=== PATIENT | male | born 1960 | race Caucasian/White ===

== ENCOUNTER → 2019-07-27 | Outpatient (CLI) | payer OTHER | LOC: COL.RAD 13:53 | DX: R91.8 Other nonspecific abnormal finding of lung field (principal) | CPT/HCPCS: Q9967 ==

== ENCOUNTER → 2019-08-21 | Outpatient (CLI) | payer OTHER ==
[~2019-08-21] VITALS: Ht 188 cm; Wt 66.2 kg
[2019-08-21] VITALS (8 sets, daily range): BP systolic 135–169; BP diastolic 82–114; PULSE 59–79
--- NOTE | 2019-08-21 07:57 | NUR ---
PT AMBULATROY TO CT. PLACED ON MONITOR EQUIPMENT AND IMAGES TAKEN.
--- NOTE | 2019-08-21 08:17 | NUR ---
PT WAS GIVEN 50 MCG FENTANYL FOR PAIN AT 0807 SAMPLES WERE TAKEN
--- NOTE | 2019-08-21 09:00 | NUR ---
PT WAS TAKEN BY WHEELCHAIR TO POV. MOM DRIVES PT HOME.
== END ==
LOC: COL.RAD 06:50
DX: J94.8 Other specified pleural conditions (principal)
CPT/HCPCS: J3010